=== PATIENT | male | born 1975 | race Caucasian/White ===

== ENCOUNTER 2020-02-27 07:00 | Inpatient (IN) | payer OTHER ==
[~2020-02-27] VITALS: Ht 180.3 cm; Wt 123.7 kg
[2020-02-27 07:11] VITALS: BP 142/82
[2020-02-27 07:34] LABS: ABSOLUTE BASOPHILS 0.1 thou/uL (0.0-0.2); ABSOLUTE EOSINOPHILS 0.1 thou/uL (0.0-0.7); ABSOLUTE MONOCYTES 0.8 thou/uL (0.0-1.2); BASOPHILS 0.5 %; EOSINOPHILS 0.6 %; HEMATOCRIT 45.3 % (42.0-52.0); HEMOGLOBIN 15.1 gm/dL (14.0-18.0); LYMPHOCYTES 15.7 %; MCHC 33.4 g/dL (28.0-37.0); MCV 86.7 fL (80.0-100.0); MONOCYTES 6.2 %; MPV 7.9 fl. (7.2-11.1); NUCLEATED RBCS 0 /100WBC; PLATELET COUNT* 335 thou/uL (150-400); RBC 5.23 mil/uL (4.50-6.00); RDW-CV 13.6 % (10.5-14.5)
[2020-02-27 07:42] LABS: CALCIUM 10.2 mg/dL (8.5-10.1); CREATININE 1.4 mg/dL (0.6-1.3); POTASSIUM 4.2 mmol/L (3.5-5.1)
[2020-02-27 07:47] LABS: ALBUMIN 4.1 g/dL (3.4-5.0); TOTAL BILIRUBIN 0.4 mg/dL (<0.1-1.0); TOTAL PROTEIN 7.4 g/dL (6.4-8.2)
[2020-02-27 08:51] LABS: URINE BILIRUBIN NEGATIVE (Negative); URINE BLOOD NEGATIVE (Negative); URINE CLARITY CLEAR; URINE COLOR YELLOW; URINE GLUCOSE-RANDOM NEGATIVE (Negative); URINE KETONES NEGATIVE (Negative); URINE LEUKOCYTES-REFLEX NEGATIVE (Negative); URINE NITRITE-REFLEX NEGATIVE (Negative); URINE PROTEIN NEGATIVE (Negative); URINE SPECIFIC GRAVITY 1.025 (1.005-1.030); URINE UROBILINOGEN 0.2 E.U./dl (0.2-1.0)
[2020-02-27 11:08] VITALS: BP 131/78
[2020-02-27 11:41] VITALS: BP 128/68
--- NOTE | 2020-02-27 13:49 | NUR ---
PATIENT ARRIVED TO UNIT AT APPROX. 1120. PATIENT A&OX4, PLEASANT AND COOPERATIVE WITH CARES. IV PRESENT IN PATIENT'S LEFT AC AND IS PATENT. PATIENT IS ON ROOM AIR, VSS. C/O ABDOMINAL PAIN RATED AT 2/10, DENIES N/V. LCTA, ALL PULSES +2, NO EDEMA NOTED. PATIENT DENIES TAKING ANY MEDICATIONS AT HOME NOR HAVING A MED/SURGICAL HISTORY. PATIENT CURRENTLY SITTING UP IN BED, CALL LIGHT AND FREQUENTLY USED ITEMS WITHIN REACH.
[2020-02-27 17:01] VITALS: BP 146/83
--- NOTE | 2020-02-27 18:30 | NUR ---
PATIENT CURRENTLY SITTING UP IN BED, AT BEDSIDE. IV FLUIDS INFUSING ORDERED. PATIENT HAS TOLERATED REGULAR DIET AND HAS DENIED ANY N/V/PAIN SINCE ADMITTING TO UNIT. PATIENT REPORTS ONE EPISODE OF DIARRHEA SINCE ADMISSION AND STATES "I THINK GOT FOOD POISONING FROM A RESTAURANT I ATE AT YESTERDAY". AT LAST ROUNDS PATIENT STATES "WHEN DO YOU THINK THEY'LL LET ME OUT OF HERE...I FEEL 100% BETTER..." PATIENT HAS BEEN UP AD GINA; CALL LIGHT AND PERSONAL ITEMS WITHIN REACH.
[2020-02-27 20:15] VITALS: BP 121/69
[2020-02-28 04:41] LABS: ABSOLUTE BASOPHILS 0.1 thou/uL (0.0-0.2); ABSOLUTE EOSINOPHILS 0.2 thou/uL (0.0-0.7); ABSOLUTE LYMPHOCYTES 2.2 thou/uL (0.8-5.3); ABSOLUTE MONOCYTES 0.6 thou/uL (0.0-1.2); ABSOLUTE NEUTROPHILS 4.2 thou/uL (1.6-8.1); BASOPHILS 0.7 %; EOSINOPHILS 2.8 %; HEMATOCRIT 39.8 % (42.0-52.0); HEMOGLOBIN 13.4 gm/dL (14.0-18.0); LYMPHOCYTES 30.4 %; MCH 29.3 pg (26.0-34.0); MCHC 33.7 g/dL (28.0-37.0); MONOCYTES 7.9 %; NUCLEATED RBCS 0 /100WBC; POLYS 58.2 %; RBC 4.57 mil/uL (4.50-6.00); RDW-CV 13.5 % (10.5-14.5); WBC 7.2 thou/uL (4.0-11.0)
[2020-02-28 04:49] LABS: CALCIUM 8.5 mg/dL (8.5-10.1); CREATININE 1.3 mg/dL (0.6-1.3); POTASSIUM 3.9 mmol/L (3.5-5.1)
[2020-02-28 04:56] LABS: PLATELET COUNT* 256 thou/uL (150-400)
--- NOTE | 2020-02-28 06:40 | NUR ---
PT SLEPT FAIRLY WELL OVERNIGHT. DENIES PAIN OR PROBLEMS, TOLERATING REGULAR DIET WITHOUT DIFFICULTY. NO STOOLS OVERNIGHT HE REPORTS. IVF INFUSING PER PUMP, ABX GIVEN ORDERED. AM LABS. HOPEFUL FOR DISCHARGE HOME TODAY.
--- NOTE | 2020-02-28 09:18 | EKG ---
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 02/28/20 0917 0732 0732 Rickey Levy MD, [facility] /EPI
[2020-02-28] MEDS ORDERED: FLAGYL500 M1 PO (10:10)
[2020-02-28] MEDS ORDERED: CIPRO500 MG PO (10:10)
[2020-02-28] MEDS ORDERED: ZOFRAN ODT4 MG PO (10:36)
[2020-02-28 10:58] VITALS: BP 121/69
--- NOTE | 2020-02-28 11:56 | NUR ---
PT A&OX4 VSS. PT UP AD GINA, GAIT STEADY. PT DENIES N/V OR PAIN. PT REMAINS CONTINENT OF B/B. IV TO LAC DC'D PRIOR TO LEAVING UNIT. NO REDNESS/SWELLING OBSERVED AT SITE. PT TOLERATES PO INTAKE WITHOUT DIFFICULTY. PT STATES UNDERSTANDING OF DC INSTRUCTIONS AND RX PROVIDED. PT DRESSED INDEPENDENTLY. PT DECLINED WHEELCHAIR. PT LEFT UNIT WITH SPOUSE AND NURSING STAFF.
[2020-02-28 12:21] VITALS: BP 121/69
== END 2020-02-28 11:26 | disposition home or self-care (01) | DRG 372 ==
LOC: M.ERS 07:00 → M.3W 09:16 → M.TBA-ER 09:16 → M.3W 11:20
PROVIDERS: Family Medicine; ADMIT Internal Medicine; ATTEND Internal Medicine
DX: A04.9 Bacterial intestinal infection, unspecified (principal); M62.82 Rhabdomyolysis; R65.10 Systemic inflammatory response syndrome (SIRS) of non-infectious origin without acute organ dysfunction; N17.9 Acute kidney failure, unspecified; N18.2 Chronic kidney disease, stage 2 (mild); E86.0 Dehydration; E66.9 Obesity, unspecified; Z20.822 Contact with and (suspected) exposure to COVID-19; Z68.38 Body mass index [BMI] 38.0-38.9, adult; Z88.1 Allergy status to other antibiotic agents; Z88.0 Allergy status to penicillin; Z88.8 Allergy status to other drugs, medicaments and biological substances; Z87.440 Personal history of urinary (tract) infections; Z82.49 Family history of ischemic heart disease and other diseases of the circulatory system